=== PATIENT | male | born 1975 | race Caucasian/White ===

== ENCOUNTER 2017-04-18 12:45 | Emergency (ER) | payer OTHER ==
[2017-04-18] MEDS ORDERED: Sodium Chloride 0.9% 1000 ML 1,000 ML IV STA (12:57)
[2017-04-18] MEDS ORDERED: TORAdol 30 mg Injection IV ONE (12:57)
[2017-04-18] MEDS ORDERED: BENADRYL 50 MG/ML IV ONE (12:57)
[2017-04-18] MEDS ORDERED: Sodium Chloride 0.9% 1000 ML 1,000 ML ONE (13:09)
[2017-04-18] MEDS ORDERED: BENADRYL 50 MG/ML ONE (13:09)
[2017-04-18 13:28] LABS: BASOPHIL % 0.1 % (0.0-0.4); Eosinophil % 1.2 % (0.00-5.0); Granulocytes % 72.4 % (36.0-66.0); Lymphocytes % 18.8 % (24.0-44.0); Mean Cell Volume 85.1 fl (78-100); Mean Corpuscular Hemoglobin 30.2 pg (26-32); Mean Platelet Volume 11.3 fl (6-9.5); Monocytes % 7.5 % (0.0-12.0); Platelet Count 186 K/mm3 (150-450); Red Blood Count 5.29 M/mm3 (4.1-5.6); White Blood Count 8.3 K/mm3 (4.0-10.5)
[2017-04-18 13:30] LABS: ANION GAP 12.6 MEQ/L (5-15); BLOOD UREA NITROGEN 13 mg/dL (9-20); CHLORIDE 107 mEq/L (98-107); Carbon Dioxide 25.3 mEq/L (21-32); Glucose 104 MG/DL (70-110); Potassium 3.7 mEq/L (3.5-5.1); SODIUM 141 mEq/L (136-145)
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
[2017-04-18] MEDS ORDERED: Zofran 4 MG/2 ML VIAL IV ONE (14:17)
[2017-04-18] MEDS ORDERED: DILAUDID 2 MG INJECTION IV STA (14:17)
[2017-04-18] MEDS ORDERED: Zofran 4 MG/2 ML VIAL ONE (14:18)
[2017-04-18] MEDS ORDERED: Hydromorphone 1 mg/ml Ampule ONE ×2 (14:18→18:53)
[2017-04-18] MEDS ORDERED: Hydromorphone 1 mg/ml Ampule IV ONE ×2 (14:20→18:51)
--- NOTE | 2017-04-18 15:06 | XRAY ---
Indication: Low back pain. Leg weakness. Multiple contiguous axial images obtained through the lumbar spine. Sagittal and coronal reformatted images obtained. Comparison: None Axial images negative for acute fracture, suspicious bony lesions, or spinal canal stenosis. There is left paracentral broad-based disc bulge at the L4-L5 level producing left foraminal stenosis. Broad-based disc osteophyte complex at the L5-S1 level produces bilateral foraminal stenosis. Facets are symmetric. Sagittal and coronal reformatted images demonstrates normal lumbar alignment with mild L4-S1 disc space narrowing. Opposing endplate degenerative changes seen at the L4-L5 level. No acute compression fracture or subluxation. Visualized noncontrasted soft tissues are unremarkable. Impression: L4-S1 degenerative disc disease as detailed. Greatest extent at L5-S1 level. Outpatient MRI lumbar spine may yield further information.
[2017-04-18 15:13] LABS: Collection Type VOID
[2017-04-18 15:14] LABS: Bilirubin NEGATIVE (NEGATIVE); Blood 50 Ery/ul (0-5); COMPLETE URINE MICROSCOPIC? YES; Epithelial Cells FEW /HPF (FEW); Glucose NEGATIVE (NEGATIVE); Leukocyte Esterase NEGATIVE (NEGATIVE); WBC 0-2 /HPF (0-5)
[2017-04-18 15:15] LABS: ADD URINE CULTURE? NO (NO)
[2017-04-18 15:21] VITALS: O2SAT 100
[2017-04-18 19:02] VITALS: BP 115/80; PULSE 69
== END 2017-04-18 19:03 | disposition short-term general hospital (02) ==
LOC: ED 12:45
DX: M54.5 Low back pain (principal); G83.10 Monoplegia of lower limb affecting unspecified side; R20.1 Hypoesthesia of skin
CPT/HCPCS: 36000; 36415; 72131; 80048; 80307; 81000; 83735; 85025; 96360; 96361; 96374; 96375; 96376; 99285; J1170; J1200; J2405

== ENCOUNTER 2023-07-03 12:05 | Emergency (ER) | payer SELFPAY ==
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
[2023-07-03] MEDS ORDERED: BABY ASPIRIN 81 MG CHEW PO ONE (12:34)
[2023-07-03 12:40] VITALS: TEMP 98.5
[2023-07-03] MEDS ORDERED: BABY ASPIRIN 81 MG CHEW ONE (12:48)
[2023-07-03 13:00] LABS: Absolute Neutrophil Ct (ANC) 2.33 x10^3/uL (1.4-6.9); BASOPHIL % 0.7 % (0.0-0.4); Basophil (Absolute #) 0.03 x10^3/uL (0-0.4); Eosinophil % 2.3 % (0.00-5.0); Hematocrit 42.1 % (42-50); Hemoglobin 14.7 g/dL (12.5-18.0); IMMATURE GRAN # 0.02 x10^3u/L (0.00-0.03); IMMATURE GRAN % 0.5 % (0.00-0.4); Lymphocyte (Absolute #) 1.38 x10^3/uL (1.0-4.6); Lymphocytes % 32.2 % (24.0-44.0); Mean Cell Volume 89.8 fL (78-100); Mean Corpuscular Hemoglobin 31.3 pg (26-32); Mean Corpuscular Hgb Concent. 34.9 g/dL (32-36); Mean Platelet Volume 10.1 fL (7.5-11.0); Monocyte (Absolute #) 0.43 x10^3/uL (0.0-1.3); Neutrophil % 54.3 % (36.0-66.0); Platelet Count 141 x10^3/uL (150-450); Red Blood Count 4.69 x10^6/uL (4.1-5.6); Red Cell Distribution Width 12.7 % (11.5-14.0); White Blood Count 4.3 x10^3/uL (4.0-10.5)
[2023-07-03 13:15] LABS: ALBUMIN 4.1 g/dL (3.5-5.0); ALKALINE PHOSPHATASE 163 U/L (38-126); ANION GAP 13.2 MEQ/L (5-15); BLOOD UREA NITROGEN 20 mg/dL (9-20); CHLORIDE 108 mmol/L (98-107); Calcium 8.8 mg/dL (8.4-10.2); Carbon Dioxide 23 mmol/L (22-30); Creatinine 1 1.12 mg/dL (0.66-1.25); EST GLOMERULAR FILTRATION RATE > 60.0 ML/MIN; Glucose 106 mg/dL (74-106); Potassium 4.3 mmol/L (3.5-5.1); SGOT/AST 175 U/L (17-59); SGPT/ALT 386 U/L (0-50); SODIUM 140 mmol/L (137-145); Total Protein 7.3 g/dL (6.3-8.2)
[2023-07-03 14:05] VITALS: BP 133/99; PULSE 59; RESP 12; O2SAT 97
== END 2023-07-03 14:20 | disposition home or self-care (01) ==
LOC: ED 12:05
DX: M79.602 Pain in left arm (principal); R20.2 Paresthesia of skin; Z79.891 Long term (current) use of opiate analgesic
CPT/HCPCS: 36415; 80053; 84484; 85025; 93005; 94760; 99283; A9270-GY